=== PATIENT | male | born 1970 | race Caucasian/White ===

== ENCOUNTER 2018-06-29 10:55 | Emergency (ER) | payer BC ==
--- NOTE | 2018-06-29 11:43 | RAD ---
THREE VIEWS RIGHT HAND: Comparison: None. History: Punched a door 40 minutes prior to arrival. Right hand pain and swelling. FINDINGS: Three views of the right hand show fracture of the fourth metacarpal neck which is mildly displaced. Overlying soft tissue swelling is seen. IMPRESSION: Fourth metacarpal fracture. POS: [facility]
== END 2018-06-29 12:09 | disposition home or self-care (01) ==
LOC: ERS 10:55
DX: S62.364A Nondisplaced fracture of neck of fourth metacarpal bone, right hand, initial encounter for closed fracture (principal); I10 Essential (primary) hypertension; Z79.899 Other long term (current) drug therapy; W22.8XXA Striking against or struck by other objects, initial encounter
CPT/HCPCS: 26600

== ENCOUNTER 2024-10-12 10:08 | Day surgery (SDC) | payer BC | END 2024-10-12 12:00 | disposition home or self-care (01) | LOC: ULT 10:08 | PROVIDERS: ATTEND Otolaryngology | PROC: 07BH3ZX Excision of Right Inguinal Lymphatic, Percutaneous Approach, Diagnostic (ICD-10-PCS; principal; 2024-10-12) | DX: C83.35 Diffuse large B-cell lymphoma, lymph nodes of inguinal region and lower limb (principal) | CPT/HCPCS: 20206; 38505; 76942; 88184; 88307; 88333; 88334 ==